=== PATIENT | female | born 1995 | race Caucasian/White ===

== ENCOUNTER 2016-09-30 22:21 | Emergency (ER) | payer OTHER | END 2016-09-30 22:40 | disposition home or self-care (01) | LOC: ER 22:21 | DX: S00.212A Abrasion of left eyelid and periocular area, initial encounter (principal); W55.03XA Scratched by cat, initial encounter; Y92.009 Unspecified place in unspecified non-institutional (private) residence as the place of occurrence of the external cause | CPT/HCPCS: 99282 ==